=== PATIENT | female | born 1960 | race Caucasian/White ===

== ENCOUNTER → 2017-07-15 | Outpatient (CLI) | payer BC | LOC: BRMIMAGING 14:11 | PROVIDERS: ATTEND Internal Medicine | DX: M79.641 Pain in right hand (principal); M79.642 Pain in left hand | CPT/HCPCS: 73130-PO ==

== ENCOUNTER → 2019-04-14 | Outpatient (CLI) | payer BC | LOC: BRMIMAGING 11:36 ==